=== PATIENT | female | born 1955 | race Caucasian/White ===

== ENCOUNTER → 2016-07-24 | Outpatient (CLI) | payer OTHER ==
--- NOTE | 2016-07-24 12:31 | XR ---
EXAMINATION TYPE: XR chest 2V DATE OF EXAM: 07/24/2016 11:29 AM COMPARISON: 10/26/2014 HISTORY: 61-year-old female with chest pain TECHNIQUE: Frontal and lateral views FINDINGS: The cardiomediastinal silhouette, aorta, and pulmonary vasculature are within normal limits. Hyperinf lation with flattening of the hemidiaphragms. No consolidation or pleural effusion. IMPRESSION: COPD without acute cardiopulmonary process.
--- NOTE | 2016-07-25 13:55 | MM ---
Reason for exam: screening (asymptomatic). Last mammogram was performed 6 years and 3 months ago. History: Patient is postmenopausal. Benign excisional biopsy of the left breast, 1985. Took estrogen for 1 year beginning at age 43. Took progesterone for 1 year beginning at age 43. Physical Findings: A clinical breast exam by your physician is recommended on an annual basis and results should be correlated with mammographic findings. MG Screening Mammo w CAD Bilateral CC and MLO view(s) were taken. Prior study comparison: May 05, 2010, bilateral digital screening mammo w/CAD. There are scattered fibroglandular densities. No significant changes when compared with prior studies. ASSESSMENT: Benign, BI-RAD 2 RECOMMENDATION: Routine screening mammogram of both breasts in 1 year.
== END | disposition home or self-care (01) ==
LOC: RADMAMWWP 10:51
PROVIDERS: ATTEND Family Medicine
DX: Z12.31 Encounter for screening mammogram for malignant neoplasm of breast (principal); J44.9 Chronic obstructive pulmonary disease, unspecified; R07.9 Chest pain, unspecified
CPT/HCPCS: 71020; G0202

== ENCOUNTER 2022-11-02 14:31 | Inpatient (IN) | payer MEDICARE ==
--- NOTE | 2022-11-02 15:05 | ED ---
Chest Pain HPI - General Chief Complaint: Chest Pain Stated Complaint: chest pain Time Seen by Provider: 11/02/22 15:04 Source: patient Mode of arrival: ambulatory Limitations: no limitations - History of Present Illness Initial Comments: Ainsa is a pleasant 67yo F who presents to the ER for evaluation of chest pain and outpatient labs with a positive troponin. Has no history of cardiac disease she reports she's been having episodic chest pain for about a month. She states that last night the chest pain became very severe and she was afraid she was having a heart attack. This morning she contacted her daughter who is a physician and told her over findings her daughter ordered outpatient labs and contacted her chiller that her cardiac enzymes were elevated and she needed to come the hospital immediately. Patient states she still having some pressure- like pain in her left chest but is not nearly as severe as last night. No shortness of breath or diaphoresis. Patient is about a half pack a day smoker but states she hasn't been smoking much lately because she doesn't feel well. She smokes marijuana regularly. She is on no oral medications that she has previously been treated for hypertension during periods of stress her life like when she was provided end-of-life care for her mother or her . Patient does report a family history of cardiac disease her mother had multiple MIs and strokes in her lifetime. - Related Data Home Medications Medication Instructions Recorded Confirmed Ascorbic Acid [Vitamin C] 500 mg PO DAILY 11/02/22 11/02/22 Aspirin EC [Ecotrin Low Dose] 81 mg PO DAILY 11/02/22 11/02/22 Cholecalciferol [Vitamin D3 (25 25 mcg PO DAILY 11/02/22 11/02/22 Mcg = 1000 Iu)] Magnesium Chewable (Unknown Dose) 1 tab PO DAILY 11/02/22 11/02/22 Omeprazole Magnesium [PriLOSEC OTC] 20 mg PO DAILY 11/02/22 11/02/22 Zinc Gluconate [Zinc] 50 mg PO DAILY 11/02/22 11/02/22 Allergies Allergy/AdvReac Type Severity Reaction Status Date / Time Penicillins Allergy Unknown Verified 11/02/22 16:38 Childhood aspirin AdvReac Upset Verified 11/02/22 16:38 stomach codeine AdvReac Nausea & Verified 11/02/22 16:38 Vomiting tramadol AdvReac Chest Pain Verified 11/02/22 16:38 & Nausea Review of Systems ROS Statement: Those systems with pertinent positive or pertinent negative responses have been documented in the HPI. ROS Other: All systems not noted in ROS Statement are negative. EKG Findings - EKG Comments: EKG Findings:: EKG was obtained due to complaint of chest pain, EKG was obtained at 1456 rate is 71 rhythm is sinus there is normal axis, NH interval prolonged at 206, QRS 83, QTC [address] elevations or depressions no evidence of acute ischemia or infarction. Past Medical History Past Medical History: Chest Pain / Angina, COPD, GERD/Reflux, Hypertension Additional Past Medical History / Comment(s): 02/09/15 Pt presented to [facility] ER with L lower abdominal pain for past 5 days. Over the last 3 days, pain has increased. Pain is at times sharp and at times dull. Pt having difficulty eating. She has to push to pass gas. She has had decreased bowel movements with last BM 3 days ago. Pt is being admitted with clinical impression of: diverticulitis, UTI. Other HX: 06/2013 diverticulitis with abscess unable to drain -tx medically. Additional HX: RA, chronic back pain, IBS, lactose intolerance, acute bronchitis, UTIs, chest pain 2008. History of Any Multi-Drug Resistant Organisms: None Reported Past Surgical History: Adenoidectomy, Appendectomy, Cholecystectomy, Hysterectomy, Orthopedic Surgery, Tonsillectomy Additional Past Surgical History / Comment(s): L elbow surgery, bilateral carpal tunnel releases, trigger finger surgery bilaterally. Past Anesthesia/Blood Transfusion Reactions: No Reported Reaction Additional Past Anesthesia/Blood Transfusion Reaction / Comment(s): Pt has never recieved blood. Past Psychological History: Depression Smoking Status: Current every day smoker Past Alcohol Use History: Occasional Past Drug Use History: None Reported - Past Family History Father Additional Family Medical History / Comment(s): Father was an alcoholic. He at age 78yrs. Mother Family Medical History: Coronary Artery Disease (CAD), CVA/TIA, Myocardial Infarction ([place]) Additional Family Medical History / Comment(s): Mother had several MIs and CVAs. She at age 79yrs. General Exam - General Exam Comments Initial Comments: Physical Exam GENERAL: Patient is well-developed and well-nourished. Patient is nontoxic and well-hydrated and is in no distress. HENT: Normocephalic, Atraumatic. EYES: PERRL, EOMI PULMONARY: Unlabored respirations. No audible rales rhonchi or wheezing was noted. CARDIOVASCULAR: There is a regular rate and rhythm without any murmurs gallops or rubs. ABDOMEN: Soft and nontender with normal bowel sounds. SKIN: Skin is clear with no lesions or rashes and otherwise unremarkable. : Deferred NEUROLOGIC: Patient is alert and oriented x3. Moving all extremities spontaneously MUSCULOSKELETAL: Normal extremities with adequate strength and full range of motion. No lower extremity swelling or edema. No calf tenderness. PSYCHIATRIC: Normal psychiatric evaluation. Limitations: no limitations Course Vital Signs 11/02/22 11/02/22 11/02/22 14:43 15:24 16:02 Temperature 98.9 F Pulse Rate 75 67 66 Respiratory 16 18 19 Rate Blood Pressure 129/86 159/81 151/88 O2 Sat by Pulse 95 96 95 Oximetry 11/02/22 11/02/22 11/02/22 17:32 18:53 21:16 Temperature 98 F Pulse Rate 66 65 78 Respiratory 18 17 22 Rate Blood Pressure 163/85 167/86 166/87 O2 Sat by Pulse 98 95 96 Oximetry Chest Pain MDM - Core Measures AMI Core Measures Followed: Yes - MDM She was seen and evaluated upon arrival to the emergency department Patient with chest pain for nearly a month worsening last night, palpation troponin positive EKG with no apparent ischemic findings Repeat labs are obtained, troponin elevated 0.7, BNP elevated Chest x-ray with no acute findings Aspirin, Heparin, nitro infusion ordered. Patient reported pain decreased to a 2 out of 10 in intensity after nitro Patient care was discussed with Dr. ERROL Tejada who agreed with plan for medications as ordered. Recommended metoprolol 4.5 twice a day, patient nothing by mouth at midnight for possible cath in the morning continued to trend troponins Per patient's request she'll be admitted with Dr. Murillo, he accepts the admission for NSTEMI with cardiology on consult Was pt. sent in by a medical professional or institution (, PA, FUNDER, urgent care, hospital, or prison...) When possible be specific @ -Yes Dr. Rocha Did you speak to anyone other than the patient for history (EMS, parent, family, police, friend...)? What history was obtained from this source @ -Family at bedside Did you review nursing and triage notes (agree or disagree)? Why? @ -I reviewed and agree with nursing and triage notes Were old charts reviewed (outside hosp., previous admission, EMS record, old EKG, old radiological studies, urgent care reports/EKG's, prison records)? Report findings @ -No old charts were reviewed Differential Diagnosis (chest pain, altered mental status, abdominal pain women, abdominal pain men, vaginal bleeding, weakness, fever, dyspnea, syncope, headache, dizziness, GI bleed, back pain, seizure, CVA, palpatations, mental health, musculoskeletal)? @ -Differential Chest Pain: Stable Angina, Unstable Angina, STEMI, NSTEMI Aortic Dissection, Pneumothorax, Musculoskeletal, Esophageal Spasm GERD, Cholecystitis, Pancreatitis, Zoster, this is not meant to be an all-inclusive list. EKG interpreted by me (3pts min.). @ -As above X-rays interpreted by me (1pt min.). @ -Pneumothorax no widened venous sign him no significant cardiomegaly CT interpreted by me (1pt min.). @ -None done U/S interpreted by me (1pt. min.). @ -None done What testing was considered but not performed or refused? (CT, X-rays, U/S, labs)? Why? @ -Cardiac cath to be done on admission What meds were considered but not given or refused? Why? @ -None Did you discuss the management of the patient with other professionals (professionals i.e. , PA, FUNDER, lab, RT, psych nurse, social work nurse, hand mixer, teacher, tax compliance officer, family service caseworker)? Give summary @ -Discussed with Dr. Tejada cardiology Was smoking cessation discussed for >3mins.? @ -Yes Was critical care preformed (if so, how long)? @ -Yes 5 minutes Were there social determinants of health that impacted care today? How? (Homelessness, low income, unemployed, alcoholism, drug addiction, transportation, low edu. Level, literacy, decrease access to med. care, long term, rehab)? @ -No Was there de-escalation of care discussed even if they declined (Discuss DNR or withdrawal of care, Hospice)? DNR status @ -No What co-morbidities impacted this encounter? (DM, HTN, Smoking, COPD, CAD, Cancer, CVA, ARF, Chemo, Hep., AIDS, mental health diagnosis, sleep apnea, morbid obesity)? @ -Hypertension, smoking Was patient admitted / discharged? Hospital course, mention meds given and route, prescriptions, significant lab abnormalities, going to OR and other pertinent info. @ -Admitted Undiagnosed new problem with uncertain prognosis? @ -Yes Drug Therapy requiring intensive monitoring for toxicity (Heparin, Nitro, Insulin, Cardizem)? @ -Yes, heparin, nitro Were any procedures done? @ -No Diagnosis/symptom? @ -NSTEMI Acute, or Chronic, or Acute on Chronic? @ -Acute Uncomplicated (without systemic symptoms) or Complicated (systemic symptoms)? @ -Complicated Side effects of treatment? @ -No Exacerbation, Progression, or Severe Exacerbation? @ -No Poses a threat to life or bodily function? How? (Chest pain, [place], [place], pneumonia, PE, COPD, DKA, ARF, appy, cholecystitis, CVA, Diverticulitis, Homicidal, Suicidal, threat to staff... and all critical care pts) @ -yes Critical Care Time Critical Care Time: Yes Total Critical Care Time: 35 Disposition Clinical Impression: NSTEMI (non-ST elevated myocardial infarction), HTN (hypertension), Tobacco abuse Disposition: ADMITTED IP TO THIS HOSP Condition: Serious Is patient prescribed a controlled substance at d/c from ED?: No
[2022-11-02] MEDS ORDERED: HEPARIN SODIUM 1,000 UN/ML (10ML VL) IV ONE (15:22)
[2022-11-02] MEDS ORDERED: NITROGLYCERIN SL TABS 0.4 MG TAB SUBLINGUAL PRN (15:22)
--- NOTE | 2022-11-02 15:26 | XR ---
EXAMINATION TYPE: XR chest 2V DATE OF EXAM: 11/02/2022 COMPARISON: 07/24/2016 HISTORY: 67-year-old female with chest pain TECHNIQUE: PA and lateral views FINDINGS: Heart normal size. Aorta and pulmonary vasculature are within normal limits. Mild interstitial promin ence. Hyperinflation. No consolidation or pleural effusion. IMPRESSION: COPD and chronic changes. No definite acute process.
[2022-11-02 15:34] LABS: Basophils # (A) 0.1 k/uL (0-0.2); Basophils % (A) 1 %; Eosinophils # (A) 0.2 k/uL (0-0.7); Eosinophils % (A) 2 %; HCT 39.4 % (34.0-46.0); HGB 13.7 gm/dL (11.4-16.0); Lymphocytes # (A) 4.6 k/uL (1.0-4.8); Lymphocytes % (A) 43 %; MCH 32.3 pg (25.0-35.0); MCHC 34.8 g/dL (31.0-37.0); MCV 93.1 fL (80.0-100.0); Mean Platelet Volume 7.6; Monocytes # (A) 0.7 k/uL (0-1.0); Monocytes % (A) 7 %; Neutrophils % (A) 46 %; Platelet Count 200 k/uL (150-450); RBC 4.24 m/uL (3.80-5.40); RDW 14.8 % (11.5-15.5); WBC 10.8 k/uL (3.8-10.6)
[2022-11-02] MEDS ORDERED: ASPIRIN 81 MG PO STA (15:34)
[2022-11-02 15:46] LABS: INR 0.9 (<1.2); Partial Thromboplastin Time 22.3 sec (22.0-30.0); Prothrombin Time 9.6 sec (9.0-12.0)
[2022-11-02 15:49] LABS: ALT 25 U/L (4-34); AST 35 U/L (14-36); African American GFR (CKD) >90 (>60 ml/min/1.73 sqM); Albumin 4.1 g/dL (3.5-5.0); Alkaline Phosphatase 101 U/L (38-126); Anion Gap 9 mmol/L; Blood Urea Nitrogen 17 mg/dL (7-17); Calcium 9.1 mg/dL (8.4-10.2); Carbon Dioxide 23 mmol/L (22-30); Chloride 106 mmol/L (98-107); Glucose 109 mg/dL (74-99); Magnesium 1.6 mg/dL (1.6-2.3); Non-African American GFR(CKD) 89 (>60 ml/min/1.73 sqM); Potassium 3.9 mmol/L (3.5-5.1); Sodium 138 mmol/L (137-145); Total Bilirubin 0.5 mg/dL (0.2-1.3)
[2022-11-02 15:57] LABS: NT-Pro-B-Type Natriuretic Pept 2140 pg/mL
[2022-11-02] MEDS ORDERED: HEPARIN SOD,PORK IN 0.45% NACL 25,000 UNIT in 0.45% NACL 1 250ML.BAG IV SCH (16:00)
[2022-11-02] MEDS ORDERED: NITROGLYCERIN-D5W PMX 50 MG in DEXTROSE/WATER 1 250ML.BAG IV ONE (16:12)
--- NOTE | 2022-11-02 17:21 | P.HPIM ---
History of Present Illness H&P Date: 11/02/22 Anisa Nova, is a 67-year-old female who presented to [facility] emergency room with a chief complaint of chest pain and elevated troponin level. Patient states that over the last 4 weeks she has been having episodes of chest discomfort lasting 1-2 hours at the time, she describes episodes of pressure in the chest, however last night she had an episode of more severe pain radiating down to her left arm, and lasting several hours, she contacted her daughter who is a physician, she ordered a troponin level and that was elevated, patient was told to come to emergency room. She was evaluated in the emergency room vital examination on presentation revealed a temperature of 98.9 pulse 75 respiration 16 blood pressure 129/86 pulse ox 95% on room air Laboratory data revealed a white blood count of 10.8 hemoglobin 13.7 platelet count 200 sodium 138 potassium 3.9 chloride 106 CO2 23 BUN 17 creatinine 0.69 troponin level 0.794 BNP 2140 Testing in the emergency room revealed chest x-ray done in the emergency room revealed hyperinflation suggestive of COPD, no acute process. EKG revealed sinus rhythm with poor R-wave progression in anterior leads and T-wave inversion in V1 to V3 and lead 3 and aVF, no ST segment elevation. Patient was admitted to medical floor for further evaluation and treatment, she was started on IV heparin in the emergency room, cardiology consultation was requested. Past medical history is significant for history of hypertension, history of hype rlipidemia, patient used to be on medications however she stated that she stopped taking her blood pressure medication several years ago, previous episode of chest pain patient stated that she was admitted 12 years ago she underwent cardiac catheterization that was within normal limits at that time, no angioplasty or stent placement, patient also had a stress test in 2016 that was within normal limits , there is history of osteoarthritis, history of diverticulosis with episodes of diverticulitis with admission in 2014, surgical history significant for tonsillectomy with adenoidectomy, cholecystectomy appendectomy and hysterectomy. Social history significant for tobacco use patient stated that she still smoke about half a pack per day, she denies any significant alcohol use there is no history of drug use. On review of systems patient is alert and oriented 3 in no apparent distress there is no fever or chills no headache or dizziness no chest pain at this time no shortness of breath at rest no cough no nausea or vomiting no abdominal pain no diarrhea no blood in the stools no burning with urination no frequency or urgency and no hematuria. There is no weakness or numbness in any of the extremities there is no change in vision speech or gait. Past Medical History Past Medical History: Chest Pain / Angina, COPD, GERD/Reflux, Hypertension Additional Past Medical History / Comment(s): 02/09/15 Pt presented to [facility] ER with L lower abdominal pain for past 5 days. Over the last 3 days, pain has increased. Pain is at times sharp and at times dull. Pt having difficulty eating. She has to push to pass gas. She has had decreased bowel movements with last BM 3 days ago. Pt is being admitted with clinical impression of: diverticulitis, UTI. Other HX: 06/2013 diverticulitis with abscess unable to drain -tx medically. Additional HX: RA, chronic back pain, IBS, lactose intolerance, acute bronchitis, UTIs, chest pain 2008. History of Any Multi-Drug Resistant Organisms: None Reported Past Surgical History: Adenoidectomy, Appendectomy, Cholecystectomy, H ysterectomy, Orthopedic Surgery, Tonsillectomy Additional Past Surgical History / Comment(s): L elbow surgery, bilateral carpal tunnel releases, trigger finger surgery bilaterally. Past Anesthesia/Blood Transfusion Reactions: No Reported Reaction Additional Past Anesthesia/Blood Transfusion Reaction / Comment(s): Pt has never recieved blood. Past Psychological History: Depression Smoking Status: Current every day smoker Past Alcohol Use History: Occasional Past Drug Use History: None Reported - Past Family History Father Additional Family Medical History / Comment(s): Father was an alcoholic. He at age 78yrs. Mother Family Medical History: Coronary Artery Disease (CAD), CVA/TIA, Myocardial Infarction ([place]) Additional Family Medical History / Comment(s): Mother had several MIs and CVAs. She at age 79yrs. Medications and Allergies Home Medications Medication Instructions Recorded Confirmed Type Ascorbic Acid [Vitamin C] 500 mg PO DAILY 11/02/22 11/02/22 History Aspirin EC [Ecotrin Low Dose] 81 mg PO DAILY 11/02/22 11/02/22 History Cholecalciferol [Vitamin D3 (25 25 mcg PO DAILY 11/02/22 11/02/22 History Mcg = 1000 Iu)] Magnesium Chewable (Unknown Dose) 1 tab PO DAILY 11/02/22 11/02/22 History Omeprazole Magnesium [PriLOSEC OTC] 20 mg PO DAILY 11/02/22 11/02/22 History Zinc Gluconate [Zinc] 50 mg PO DAILY 11/02/22 11/02/22 History Allergies Allergy/AdvReac Type Severity Reaction Status Date / Time Penicillins Allergy Unknown Verified 11/02/22 16:38 Childhood aspirin AdvReac Upset Verified 11/02/22 16:38 stomach codeine AdvReac Nausea & Verified 11/02/22 16:38 Vomiting tramadol AdvReac Chest Pain Verified 11/02/22 16:38 & Nausea Physical Exam Vitals: Vital Signs Temp Pulse Resp BP Pulse Ox 11/02/22 16:02 66 19 151/88 95 11/02/22 15:24 67 18 159/81 96 11/02/22 14:43 98.9 F 75 16 129/86 95 Intake and Output 11/02/22 11/02/22 11/02/22 06:59 14:59 22:59 Other: Weight 65.771 kg In general patient is alert and oriented x 3 in no distress HEENT head normocephalic and atraumatic Neck is supple no JVD no goiter no lymphadenopathy no carotid bruit Chest examination is clear to auscultation no crackles no wheezing Cardiac exam reveals regular heart sounds S1 and S2 no gallops no murmurs Abdomen is soft nontender no organomegaly with normal bowel sounds Extremity exam reveals no edema no cyanosis or clubbing Neurological examination reveals no gross focal deficits Results CBC & Chem 7: 11/02/22 14:56 11/02/22 14:56 Labs: Abnormal Lab Results - Last 24 Hours (Table) 11/02/22 11/02/22 11/02/22 Range/Units 14:56 14:56 14:56 WBC 10.8 H (3.8-10.6) k/uL Glucose 109 H (74-99) mg/dL Troponin I 0.794 H* (0.000-0.034) ng/mL Assessment and Plan Plan: Non-ST elevation acute myocardial infarction Underlying history of hypertension Underlying history of hyperlipidemia Underlying history of tobacco use Evidence of COPD Previous history of diverticulosis with history of diverticulitis At this time patient was started on IV heparin She was also started on lisinopril, aspirin, Lipitor, nitroglycerin and metoprolol in the emergency room Cardiology consultation was requested Will follow closely
[2022-11-02] MEDS: METOPROLOL TARTRATE 12.5 MG TAB PO SCH (21:16)
[2022-11-03] MEDS ORDERED: ACETAMINOPHEN TAB 500 MG TAB PO STA (00:41)
[2022-11-03] MEDS: ASPIRIN 81 MG PO SCH (07:44)
[2022-11-03] MEDS: METOPROLOL TARTRATE 12.5 MG TAB PO SCH (07:44)
[2022-11-03] MEDS ORDERED: ATORVASTATIN 20 MG TAB PO SCH (09:00)
[2022-11-03] MEDS ORDERED: HEPARIN SODIUM 1,000 UN/ML (10ML VL) ONE (09:48)
[2022-11-03] MEDS ORDERED: MIDAZOLAM 2 MG/2 ML VIAL IVP ONE ×2 (10:14)
[2022-11-03] MEDS ORDERED: LIDOCAINE 1% INJ 10MG/ML (20 ML MDV) SQ ONE (10:15)
[2022-11-03] MEDS ORDERED: SODIUM CHLORIDE 0.9% 1,000 ML IV ONE (10:16)
[2022-11-03] MEDS ORDERED: fentaNYL (PF) 50 MCG/ML 2 ML AMP ONE (10:19)
[2022-11-03] MEDS ORDERED: fentaNYL (PF) 50 MCG/1 ML VIAL IVP ONE (10:21)
[2022-11-03] MEDS: HEPARIN SODIUM 1,000 UN/ML (10ML VL) IVP ONE ×2 (10:21→10:29)
[2022-11-03] MEDS ORDERED: TICAGRELOR 90 MG TAB ONE (10:41)
[2022-11-03] MEDS ORDERED: TICAGRELOR 90 MG TAB PO ONE (10:43)
[2022-11-03] MEDS ORDERED: niCARdipine 25 MG/10 ML VIAL ONE (10:44)
[2022-11-03] MEDS ORDERED: IOPAMIDOL-370 100ML BTL INJ ONE ×2 (10:46→11:20)
[2022-11-03] MEDS ORDERED: niCARdipine Syringe (1,000 mcg/10 mL) INTRACORON ONE (10:47)
[2022-11-03] MEDS: NITROGLYCERIN 1000MCG/10ML SYRINGE INTRACORON ONE ×4 (10:47→11:12)
--- NOTE | 2022-11-03 11:26 | P.CRDCN ---
History of Present Illness History of present illness: HISTORY OF PRESENT ILLNESS: This is a 67 with a past medical history significant for depression and nicotine dependence. 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 We have been asked to see the patient in consultation for NSTEMI. Patient examined at the bedside. Patient has been having chest pain intermittently for the past 4 weeks. She states the pain is on the left side of her chest and underneath her armpit. She states at first she thought this was related to her bra and thought maybe it was too tight and cutting off the circulation as she has been getting some discomfort in her left arm too. She told her daughter about her symptoms who is a physician. She ordered bloodwork on her and she was found to have elevated troponins and came to the hospital for further evaluation * EKG reveals sinus mechanism with TWI in lead III and V1-V3 * Chest xray COPD and chronic changes. No definite acute process. * Laboratory data: WBC 10.8. Hemoglobin 13.7. Platelet count 200. Sodium 138. Potassium 3.9. BUN 17. Creatinine 0.69. Magnesium 1.6. Troponin 0.794. 1.180. ProBNP 2140. * Current home cardiac medications include aspirin 81mg daily REVIEW OF SYSTEMS: At the time of my exam: CONSTITUTIONAL: Denies fever or chills. HEENT: Denies blurred vision, vision changes, or eye pain. Denies hemoptysis CARDIOVASCULAR: Denies chest pain. Denies orthopnea. Denies PND. Denies palpitations RESPIRATORY: Denies shortness of breath. GASTROINTESTINAL: Denies abdominal pain. Denies nausea or vomiting. HEMATOLOGIC: Denies bleeding disorders. GENITOURINARY: Denies any blood in urine. SKIN: Denies pruitis. Denies rash. PHYSICAL EXAM: VITAL SIGNS: Reviewed. GENERAL: Well-developed in no acute distress. HEENT: Head is normocephalic. Pupils are equal, round. Sclerae anicteric. Mucous membranes of the mouth are moist. Neck supple. No JVD or thyromegaly LUNGS: Respirations even and unlabored. Lungs essentially clear to auscultation bilaterally. HEART: Regular rate and rhythm. S1 and S2 heard. ABDOMEN: Soft. Nondistended. Nontender. EXTREMITIES: Normal range of motion. No clubbing or cyanosis. Peripheral pulses intact. No lower extremity edema NEUROLOGIC: Awake and alert. Oriented x 3. ASSESSMENT: Non-STEMI Depression Nicotine dependence PLAN: Obtain 2D echo to assess cardiac structure and function Continue aspirin, lipitor, and metoprolol Continue IV heparin Patient to undergo cardiac cath this morning with Dr. Tejada Smoking cessation recommended Further recommendations pending patient course Nurse practitioner note has been reviewed by physician. Signing provider agrees with the documented findings, assessment, and plan of care. Past Medical History Past Medical History: Chest Pain / Angina, COPD, GERD/Reflux, Hypertension Additional Past Medical History / Comment(s): 02/09/15 Pt presented to [facility] ER with L lower abdominal pain for past 5 days. Over the last 3 days, pain has increased. Pain is at times sharp and at times dull. Pt having difficulty eating. She has to push to pass gas. She has had decreased bowel movements with last BM 3 days ago. Pt is being admitted with clinical impression of: diverticulitis, UTI. Other HX: 06/2013 diverticulitis with abscess unable to drain -tx medically. Additional HX: RA, chronic back pain, IBS, lactose intolerance, acute bronchitis, UTIs, chest pain 2008. History of Any Multi-Drug Resistant Organisms: None Reported Past Surgical History: Adenoidectomy, Appendectomy, Cholecystectomy, Hysterectomy, Orthopedic Surgery, Tonsillectomy Additional Past Surgical History / Comment(s): L elbow surgery, bilateral carpal tunnel releases, trigger finger surgery bilaterally. Past Anesthesia/Blood Transfusion Reactions: No Reported Reaction Additional Past Anesthesia/Blood Transfusion Reaction / Comment(s): Pt has never recieved blood. Past Psychological History: Depression Additional Psychological History / Comment(s): Pt states she has recently been placed on antidepressant but does not think it is working. She resides with her spouse who is disabled and she cares for him. She uses no assistive devices. She drives. They have a cousin who lives upstairs. Smoking Status: Current every day smoker Past Alcohol Use History: Occasional Additional Past Alcohol Use History / Comment(s): Pt states she started smoking at age 13. She smoked 1/2 ppd and has not had a cigarette for 4 days. She intends to not smoke again. Past Drug Use History: None Reported - Past Family History Father Additional Family Medical History / Comment(s): Father was an alcoholic. He at age 78yrs. Mother Family Medical History: Coronary Artery Disease (CAD), CVA/TIA, Myocardial Infarction (DE) Additional Family Medical History / Comment(s): Mother had several MIs and CVAs. She at age 79yrs. Medications and Allergies Home Medications Medication Instructions Recorded Confirmed Type Ascorbic Acid [Vitamin C] 500 mg PO DAILY 11/02/22 11/02/22 History Aspirin EC [Ecotrin Low Dose] 81 mg PO DAILY 11/02/22 11/02/22 History Cholecalciferol [Vitamin D3 (25 25 mcg PO DAILY 11/02/22 11/02/22 History Mcg = 1000 Iu)] Magnesium Chewable (Unknown Dose) 1 tab PO DAILY 11/02/22 11/02/22 History Omeprazole Magnesium [PriLOSEC OTC] 20 mg PO DAILY 11/02/22 11/02/22 History Zinc Gluconate [Zinc] 50 mg PO DAILY 11/02/22 11/02/22 History Allergies Allergy/AdvReac Type Severity Reaction Status Date / Time Penicillins Allergy Unknown Verified 11/02/22 16:38 Childhood aspirin AdvReac Upset Verified 11/02/22 16:38 stomach codeine AdvReac Nausea & Verified 11/02/22 16:38 Vomiting tramadol AdvReac Chest Pain Verified 11/02/22 16:38 & Nausea Physical Exam Vitals: Vital Signs Temp Pulse Pulse Resp BP BP Pulse Ox 11/03/22 07:41 97.5 F L 62 17 107/64 97 11/03/22 03:15 98.1 F 64 18 115/73 97 11/03/22 01:44 97.9 F 61 18 97/62 96 11/03/22 00:52 98.0 F 63 18 124/75 96 11/02/22 21:16 78 22 166/87 96 11/02/22 18:53 98 F 65 17 167/86 95 11/02/22 17:32 66 18 163/85 98 11/02/22 16:02 66 19 151/88 95 11/02/22 15:24 67 18 159/81 96 11/02/22 14:43 98.9 F 75 16 129/86 95 Intake and Output 11/02/22 11/03/22 11/03/22 22:59 06:59 14:59 Output Total 300 150 Balance -300 -150 Output: Urine 300 150 Other: # Voids 1 Weight 65.9 kg Results 11/02/22 14:56 11/02/22 14:56 Cardiac Enzymes 11/02/22 11/02/22 11/02/22 Range/Units 14:56 14:56 20:44 AST 35 (14-36) U/L Troponin I 0.794 H* 1.180 H* (0.000-0.034) ng/mL Coagulation 11/02/22 11/02/22 11/03/22 Range/Units 14:56 20:44 01:00 PT 9.6 (9.0-12.0) sec APTT 22.3 53.8 H 44.5 H (22.0-30.0) sec CBC 11/02/22 Range/Units 14:56 WBC 10.8 H (3.8-10.6) k/uL RBC 4.24 (3.80-5.40) m/uL Hgb 13.7 (11.4-16.0) gm/dL Hct 39.4 (34.0-46.0) % Plt Count 200 (150-450) k/uL Comprehensive Metabolic Panel 11/02/22 Range/Units 14:56 Sodium 138 (137-145) mmol/L Potassium 3.9 (3.5-5.1) mmol/L Chloride 106 (98-107) mmol/L Carbon Dioxide 23 (22-30) mmol/L BUN 17 (7-17) mg/dL Creatinine 0.69 (0.52-1.04) mg/dL Glucose 109 H (74-99) mg/dL Calcium 9.1 (8.4-10.2) mg/dL AST 35 (14-36) U/L ALT 25 (4-34) U/L Alkaline Phosphatase 101 (38-126) U/L Total Protein 7.0 (6.3-8.2) g/dL Albumin 4.1 (3.5-5.0) g/dL Current Medications Generic Name Dose Route Start Last Admin Trade Name Freq PRN Reason Stop Dose Admin Aspirin 81 mg 11/03/22 09:00 11/03/22 07:44 Aspirin 81 Mg PO 81 mg DAILY AGUSTIN Administration Atorvastatin Calcium 80 mg 11/03/22 21:00 Atorvastatin 80 Mg Tab PO HS AGUSTIN Heparin Sodium/Sodium Chloride 250 mls @ 7.893 mls/hr 11/02/22 16:00 11/02/22 15:59 25,000 unit/ Sodium Chloride IV 12 units/kg/hr .Q24H AGUSTIN 7.893 mls/hr Administration Protocol 12 UNITS/KG/HR Lisinopril 10 mg 11/03/22 09:00 Lisinopril 10 Mg Tab PO DAILY AGUSTIN Metoprolol Tartrate 12.5 mg 11/02/22 21:00 11/03/22 07:44 Metoprolol Tartrate 12.5 Mg Tab PO 12.5 mg BID AGUSTIN Administration Nitroglycerin 0.4 mg 11/02/22 15:22 11/02/22 15:48 Nitroglycerin Sl Tabs 0.4 Mg Tab SUBLINGUAL 0.4 mg Q5M PRN Administration Chest Pain Intake and Output 11/02/22 11/03/22 11/03/22 22:59 06:59 14:59 Output Total 300 150 Balance -300 -150 Output: Urine 300 150 Other: # Voids 1 Weight 65.9 kg 11/02/22 14:56 11/02/22 14:56
[2022-11-03 11:53] LABS: Mean Platelet Volume 7.4; Platelet Count 221 k/uL (150-450)
[2022-11-03] MEDS: lisinopriL 10 MG TAB PO SCH (11:57)
[2022-11-03] MEDS: SODIUM CHLORIDE 0.9% 1,000 ML IV SCH (11:57)
--- NOTE | 2022-11-03 12:06 | CA ---
Transthoracic Echo Report Name: Anisa Nova Age: 67 Gender: F : 1955 Exam Date: 11/03/2022 09:08 Exam Location: [facility] Ht (in): 65 Wt (lb): 145 Ordering Physician: Donya Jack Attending/Referring Phys: [id number], Marcie Edger Runner Akanksha Schwartz RDCS Procedure CPT: Indications: LV function Cardiac Hx: smoker Technical Quality: Fair Contrast 1: Total Dose (mL): Contrast 2: Total Dose (mL): MEASUREMENTS (Male / Female) Normal Values 2D ECHO LV Diastolic Diameter PLAX 4.4 cm 4.2 - 5.9 / 3.9 - 5.3 cm LV Systolic Diameter PLAX 2.8 cm IVS Diastolic Thickness 0.9 cm 0.6 - 1.0 / 0.6 - 0.9 cm LVPW Diastolic Thickness 1.1 cm 0.6 - 1.0 / 0.6 - 0.9 cm LV Relative Wall Thickness 0.5 RV Internal Dim ED PLAX 2.9 cm LA Systolic Diameter LX 2.8 cm 3.0 - 4.0 / 2.7 - 3.8 cm LV Diastolic Volume MOD 4C 61.5 cm??? LV Systolic Volume MOD 4C 26.7 cm??? LV Ejection Fraction MOD 4C 56.6 % LV Cardiac Index MOD 4C 1197.1 cm???/min???m??? LV Diastolic Length 4C 6.8 cm LV Systolic Length 4C 5.2 cm LV Diastolic Volume MOD 2C 85.8 cm??? LV Systolic Volume MOD 2C 32.1 cm??? LV Ejection Fraction MOD 2C 62.6 % LV Cardiac Index MOD 2C 1846.7 cm???/min???m??? LV Diastolic Length 2C 7.2 cm LV Systolic Length 2C 5.7 cm LA Volume 33.9 cm??? 18 - 58 / 22 - 52 cm??? M-MODE Aortic Root Diameter MM 3.2 cm MV E Point Septal Separation 0.3 cm AV Cusp Separation MM 2.2 cm DOPPLER AV Peak Velocity 121.6 cm/s AV Peak Gradient 5.9 mmHg MV Area PHT 4.7 cm??? Mitral E Point Velocity 93.3 cm/s Mitral A Point Velocity 98.2 cm/s Mitral E to A Ratio 1.0 MV Deceleration Time 161.7 ms MV E' Velocity 5.9 cm/s Mitral E to MV E' Ratio 15.8 FINDINGS Left Ventricle Left ventricular ejection fraction is estimated at 55-60 %. Left ventricular cavity size normal. Left ventricular wall thickness at upper limits of normal. Mild inferobasal hypokinesis Right Ventricle Normal right ventricular size and function. Unable to estimate the right ventricular systolic pressure. Right Atrium Normal right atrial size. Left Atrium Normal left atrial size. Mitral Valve Structurally normal mitral valve. Mild to moderate mitral regurgitation. Aortic Valve Trileaflet aortic valve. No aortic valve stenosis or regurgitation. Tricuspid Valve Structurally normal tricuspid valve. No tricuspid stenosis, regurgitation or prolapse. Pulmonic Valve Structurally normal pulmonic valve.trace to mild pulmonic regurgitation. Pericardium Normal pericardium. No pericardial effusion. Aorta Normal size aortic root and proximal ascending aorta. CONCLUSIONS 1. Normal left ventricular size and systolic function with mild small inferobasal hypokinesis 2. Mild to moderate mitral regurgitation Previewed by: Dr. Lee Ann Cates MD (Electronically Signed) Final Date: 03 November 2022 12:05
[2022-11-03] MEDS ORDERED: ACETAMINOPHEN TAB 325 MG TAB PO PRN (13:50)
--- NOTE | 2022-11-03 14:13 | CC ---
CARDIAC CATHETERIZATION REPORT PROCEDURES PERFORMED: 1. Left heart catheterization and coronary angiography. 2. PTCA and stenting of proximal and mid right coronary artery with drug-eluting stents. 3. Intravascular ultrasound of right coronary artery. PERFORMED BY: Dr. Mame Tejada. ANESTHESIA: Moderate conscious sedation time was 66 minutes. Patient was administered Versed. Oxygen saturation, hemodynamics, and EKG were monitored closely. This patient received a total of 4500 units of intravenous heparin. ACT was about 367 and at the end of the procedure it was 232. Patient will be on Brilinta and aspirin combination without interruption for 1 year. CLINICAL INFORMATION: Mrs. Anisa Nova is a 67-year-old lady with a history of smoking and also history of some COPD/bronchial asthma with some albuterol inhaler. She also takes vitamins and some supplements. She has gastroesophageal reflux disease. For about 3 weeks, she has been having episodes of chest tightness and pressure, but did not seek medical attention. Yesterday, she came in at the insistence of her daughter to the emergency room, had chest pain, obtained relief with nitroglycerin, placed on a heparin drip and there was evidence of troponin elevation suggestive of [id number] [place]. She was seen by me this morning and advised cardiac catheterization. Risks, benefits, options, rationale were carefully explained to the patient and I also communicated with her daughter, Rand Rocha. Echocardiogram revealed fairly well preserved systolic function with minimal inferobasal hypokinesia. DESCRIPTION OF PROCEDURE: Under local anesthesia and strict aseptic precautions, a 6-St Helenian introducer was placed in the right radial artery. Using JR4 and JL3 0.5 catheters I performed coronary angiography and checked LV pressures. LV-gram was not performed. I then performed intervention of the RCA. Following the intervention, the sheath was taken out and TR band applied as per protocol. Saturation in the fingers of the right hand was 94%. Patient tolerated the procedure well without complications. CARDIAC CATHETERIZATION FINDINGS: The left ventricular end-diastolic pressure was about nearly 18 to 20 mmHg without any gradient across the aortic valve. CORONARY ANGIOGRAPHY FINDINGS: Right coronary artery, very large dominant vessel, has some thrombus in the proximal portion. There is 80% to 90% stenosis, after which the caliber improves. There are mild haziness before the lesion distally it bifurcates into 2 branches, most of which are in the PLV distribution. There is also a PDA that comes distally. PLV is smaller, PDA is larger. No significant disease in the distal portion. At the junction of the proximal and middle 1/3, there was 80% stenosis with haziness suggestive of thrombus. Left main coronary artery, short patent disease-free vessel that bifurcates into LAD and circumflex. Left anterior descending coronary artery: Good-caliber vessel, extends along the anterior wall, gives off septal and diagonal branches, very large caliber large distribution vessel that was tortuous distally curves over the apex to supply the inferoapical portion. No significant disease in the entire LAD system. Left posterior circumflex coronary artery: Technically, this is a nondominant vessel, gives off a high first obtuse marginal that runs laterally, tortuous, minor irregularities, no significant disease. The circumflex then continues in the AV groove, also tortuous, has mild diffuse disease, but no significant stenosis. FINAL IMPRESSION: This patient has a right-dominant system, elevated filling pressures. No gradient 80% to 90% proximal RCA stenosis with haziness and thrombus. Left main circumflex and LAD do not have significant disease. RCA is dominant. RECOMMENDATIONS: I recommend intervention of the RCA that was performed expeditiously. PCI PROCEDURE DETAILS: I used a standard right Lluvia guide catheter and a run-through wire. Wire was kept distally. I pre-dilated with a 3.5 caliber NC Trek balloon of 12 mm length. There was significant amount of thrombus and the flow became very sluggish. The patient did not have EKG changes or chest pain. She was stable hemodynamically. I then deployed a 4.5 caliber Xience stent of about 15 mm length with a good angiographic result, but distal to the stent there was an area of disease with thrombus and also the flow was sluggish. I gave some nicardipine intracoronary and also nitroglycerin. There was improvement. I noted that just distal to the stented area there seemed to persist an area of narrowing even after giving nitroglycerin, the rest of the vessel opened up. I therefore decided to deploy another stent distal to the previous stent. An 18 mm long 3.5 caliber Xience stent was deployed. I performed intravascular ultrasound and noted that there was good apposition of the previous stent. I actually used a 5.0 caliber 12 mm NC Trek balloon and post dilated the previous stent which was a 4.5 caliber stent. After deploying a 3.5 caliber stent distal to this, I performed intravascular ultrasound and noted that there was good apposition of the proximal stent with a full expansion, but distally there seemed to be somewhat suboptimal expansion. I therefore used a 4.0 caliber 15 mm NC Trek balloon and dilated the entire length of the distal stent. Excellent angiographic result was achieved. The patient tolerated the procedure well without complication. There was remarkably good MICKEY-3 flow noted in the end. The patient received 180 mg of Brilinta and she will be on aspirin and Brilinta combination for 1 year without interruption. Sheath was taken out and TR band applied and she was sent to the room in stable condition. Findings were discussed with the patient and her 2 daughters. MMODL / IJN: [id number] /
--- NOTE | 2022-11-03 14:22 | P.PN ---
Subjective Progress Note Date: 11/03/22 Anisa Nova, is a 67-year-old female who presented to [facility] emergency room with a chief complaint of chest pain and elevated troponin level. Patient states that over the last 4 weeks she has been having episodes of chest discomfort lasting 1-2 hours at the time, she describes episodes of pressure in the chest, however last night she had an episode of more severe pain radiating down to her left arm, and lasting several hours, she contacted her daughter who is a physician, she ordered a troponin level and that was elevated, patient was told to come to emergency room. She was evaluated in the emergency room vital examination on presentation revealed a temperature of 98.9 pulse 75 respiration 16 blood pressure 129/86 pulse ox 95% on room air Laboratory data revealed a white blood count of 10.8 hemoglobin 13.7 platelet count 200 sodium 138 potassium 3.9 chloride 106 CO2 23 BUN 17 creatinine 0.69 troponin level 0.794 BNP 2140 Testing in the emergency room revealed chest x-ray done in the emergency room revealed hyperinflation suggestive of COPD, no acute process. EKG revealed sinus rhythm with poor R-wave progression in anterior leads and T-wave inversion in V1 to V3 and lead 3 and aVF, no ST segment elevation. Patient was admitted to medical floor for further evaluation and treatment, she was started on IV heparin in the emergency room, cardiology consultation was requested. Past medical history is significant for history of hypertension, history of hyperlipidemia, patient used to be on medications however she stated that she stopped taking her blood pressure medication several years ago, previous episode of chest pain patient stated that she was admitted 12 years ago she underwent cardiac catheterization that was within normal limits at that time, no a ngioplasty or stent placement, patient also had a stress test in 2016 that was within normal limits , there is history of osteoarthritis, history of diverticulosis with episodes of diverticulitis with admission in 2014, surgical history significant for tonsillectomy with adenoidectomy, cholecystectomy appendectomy and hysterectomy. Social history significant for tobacco use patient stated that she still smoke about half a pack per day, she denies any significant alcohol use there is no history of drug use. On review of systems patient is alert and oriented 3 in no apparent distress there is no fever or chills no headache or dizziness no chest pain at this time no shortness of breath at rest no cough no nausea or vomiting no abdominal pain no diarrhea no blood in the stools no burning with urination no frequency or urgency and no hematuria. There is no weakness or numbness in any of the extremities there is no change in vision speech or gait. On 11/03/2022 patient was seen and examined on the telemetry floor, she is alert and oriented 3 in no apparent distress, she is complaining of headache at this time otherwise she denies any complaints, there is no fever or chills no headach e or dizziness no chest pain no shortness of breath no cough no nausea or vomiting no abdominal pain no diarrhea and no urinary symptoms, patient underwent cardiac catheterization today she underwent angioplasty with stent placement of the proximal and mid right coronary artery. Objective - Vital Signs Vital signs: Vital Signs Temp 97.5 F L 11/03/22 07:41 Pulse 62 11/03/22 11:56 Resp 18 11/03/22 11:56 BP 173/79 11/03/22 11:56 Pulse Ox 95 11/03/22 11:56 FiO2 Intake & Output 11/02/22 11/03/22 11/03/22 18:59 06:59 18:59 Intake Total 411.584 Output Total 300 150 Balance -300 261.584 Weight 65.771 kg 65.9 kg Intake: IV 250 Intake, IV Titration 161.584 Amount Heparin Sod,Pork in 0.45% 138.259 NaCl 25,000 unit In 0.45 % NaCl 1 250ml.bag @ 12 UNITS/KG/HR 7.893 mls/hr IV .Q24H AGUSTIN Rx#: [id number] Nitroglycerin-D5w Pmx 50 23.325 mg In Dextrose/Water 1 250ml.bag @ 5 MCG/MIN 1.5 mls/hr IV .Q24H ONE Rx#: [id number] Output: Urine 300 150 Other: # Voids 1 - Exam In general patient is alert and oriented x 3 in no distress HEENT head normocephalic and atraumatic Neck is supple no JVD no goiter no lymphadenopathy no carotid bruit Chest examination is clear to auscultation no crackles no wheezing Cardiac exam reveals regular heart sounds S1 and S2 no gallops no murmurs Abdomen is soft nontender no organomegaly with normal bowel sounds Extremity exam reveals no edema no cyanosis or clubbing Neurological examination reveals no gross focal deficits - Labs CBC & Chem 7: 11/03/22 11:37 11/02/22 14:56 Labs: Abnormal Lab Results - Last 24 Hours (Table) 11/02/22 11/02/22 11/02/22 Range/Units 14:56 14:56 14:56 WBC 10.8 H (3.8-10.6) k/uL APTT (22.0-30.0) sec Glucose 109 H (74-99) mg/dL Troponin I 0.794 H* (0.000-0.034) ng/mL 11/02/22 11/02/22 11/03/22 Range/Units 20:44 20:44 01:00 WBC (3.8-10.6) k/uL APTT 53.8 H 44.5 H (22.0-30.0) sec Glucose (74-99) mg/dL Troponin I 1.180 H* (0.000-0.034) ng/mL 11/03/22 Range/Units 11:37 WBC (3.8-10.6) k/uL APTT (22.0-30.0) sec Glucose (74-99) mg/dL Troponin I 0.619 H* (0.000-0.034) ng/mL Assessment and Plan Plan: Non-ST elevation acute myocardial infarction Underlying history of hypertension Underlying history of hyperlipidemia Underlying history of tobacco use Evidence of COPD Previous history of diverticulosis with history of diverticulitis At this time patient was started on IV heparin Today patient underwent cardiac catheterization with angioplasty and 2 stent placement in the proximal and mid right coronary artery She was also started on lisinopril, aspirin, Lipitor, nitroglycerin and metoprolol in the emergency room Cardiology consultation was requested Will follow closely
[2022-11-03 15:50] LABS: Chol/HDL Ratio 2.98 Ratio; VLDL Calculation 15.26 mg/dL (5.00-40.00)
[2022-11-03] MEDS: METOPROLOL TARTRATE 25 MG TAB PO SCH (20:09)
[2022-11-03] MEDS: ATORVASTATIN 80 MG TAB PO SCH (20:09)
[2022-11-04] MEDS: SODIUM CHLORIDE 0.9% 1,000 ML IV SCH (06:03)
[2022-11-04] MEDS: TICAGRELOR 90 MG TAB PO SCH ×2 (07:20→21:35)
[2022-11-04] MEDS: METOPROLOL TARTRATE 25 MG TAB PO SCH ×2 (07:20→21:35)
[2022-11-04] MEDS: ASPIRIN 81 MG PO SCH (07:20)
[2022-11-04] MEDS: lisinopriL 10 MG TAB PO SCH (07:21)
[2022-11-04] MEDS: LOSARTAN 50 MG TAB PO SCH (07:21)
[2022-11-04 07:25] VITALS: RESP 16
[2022-11-04 08:30] LABS: Basophils # (A) 0.1 k/uL (0-0.2); Basophils % (A) 1 %; Eosinophils # (A) 0.2 k/uL (0-0.7); Eosinophils % (A) 2 %; HCT 38.3 % (34.0-46.0); HGB 12.9 gm/dL (11.4-16.0); Lymphocytes # (A) 3.7 k/uL (1.0-4.8); Lymphocytes % (A) 37 %; MCH 31.3 pg (25.0-35.0); MCHC 33.7 g/dL (31.0-37.0); Mean Platelet Volume 7.7; Monocytes # (A) 0.7 k/uL (0-1.0); Monocytes % (A) 7 %; Neutrophils # (A) 5.1 k/uL (1.3-7.7); Neutrophils % (A) 51 %; Platelet Count 232 k/uL (150-450); RBC 4.12 m/uL (3.80-5.40); RDW 14.7 % (11.5-15.5)
[2022-11-04 08:58] LABS: ALT 29 U/L (4-34); AST 33 U/L (14-36); African American GFR (CKD) >90 (>60 ml/min/1.73 sqM); Albumin 3.9 g/dL (3.5-5.0); Alkaline Phosphatase 67 U/L (38-126); Anion Gap 9 mmol/L; Blood Urea Nitrogen 11 mg/dL (7-17); Calcium 8.8 mg/dL (8.4-10.2); Carbon Dioxide 24 mmol/L (22-30); Chloride 104 mmol/L (98-107); Glucose 152 mg/dL (74-99); Magnesium 1.7 mg/dL (1.6-2.3); Non-African American GFR(CKD) 90 (>60 ml/min/1.73 sqM); Potassium 4.1 mmol/L (3.5-5.1); Sodium 137 mmol/L (137-145); Total Bilirubin 0.8 mg/dL (0.2-1.3); Total Protein 6.4 g/dL (6.3-8.2)
--- NOTE | 2022-11-04 11:34 | P.PN ---
Subjective Progress Note Date: 11/04/22 Anisa Nova, is a 67-year-old female who presented to [facility] emergency room with a chief complaint of chest pain and elevated troponin level. Patient states that over the last 4 weeks she has been having episodes of chest discomfort lasting 1-2 hours at the time, she describes episodes of pressure in the chest, however last night she had an episode of more severe pain radiating down to her left arm, and lasting several hours, she contacted her daughter who is a physician, she ordered a troponin level and that was elevated, patient was told to come to emergency room. She was evaluated in the emergency room vital examination on presentation revealed a temperature of 98.9 pulse 75 respiration 16 blood pressure 129/86 pulse ox 95% on room air Laboratory data revealed a white blood count of 10.8 hemoglobin 13.7 platelet count 200 sodium 138 potassium 3.9 chloride 106 CO2 23 BUN 17 creatinine 0.69 troponin level 0.794 BNP 2140 Testing in the emergency room revealed chest x-ray done in the emergency room revealed hyperinflation suggestive of COPD, no acute process. EKG revealed sinus rhythm with poor R-wave progression in anterior leads and T-wave inversion in V1 to V3 and lead 3 and aVF, no ST segment elevation. Patient was admitted to medical floor for further evaluation and treatment, she was started on IV heparin in the emergency room, cardiology consultation was requested. Past medical history is significant for history of hypertension, history of hyperlipidemia, patient used to be on medications however she stated that she stopped taking her blood pressure medication several years ago, previous episode of chest pain patient stated that she was admitted 12 years ago she underwent cardiac catheterization that was within normal limits at that time, no a ngioplasty or stent placement, patient also had a stress test in 2016 that was within normal limits , there is history of osteoarthritis, history of diverticulosis with episodes of diverticulitis with admission in 2014, surgical history significant for tonsillectomy with adenoidectomy, cholecystectomy appendectomy and hysterectomy. Social history significant for tobacco use patient stated that she still smoke about half a pack per day, she denies any significant alcohol use there is no history of drug use. On review of systems patient is alert and oriented 3 in no apparent distress there is no fever or chills no headache or dizziness no chest pain at this time no shortness of breath at rest no cough no nausea or vomiting no abdominal pain no diarrhea no blood in the stools no burning with urination no frequency or urgency and no hematuria. There is no weakness or numbness in any of the extremities there is no change in vision speech or gait. On 11/03/2022 patient was seen and examined on the telemetry floor, she is alert and oriented 3 in no apparent distress, she is complaining of headache at this time otherwise she denies any complaints, there is no fever or chills no headach e or dizziness no chest pain no shortness of breath no cough no nausea or vomiting no abdominal pain no diarrhea and no urinary symptoms, patient underwent cardiac catheterization today she underwent angioplasty with stent placement of the proximal and mid right coronary artery. On 11/04/2022 patient was seen and examined on the telemetry floor she is alert and oriented 3 in no distress there is no new episodes of chest pain patient is feeling well and denying any symptoms there is no fever or chills no headache or dizziness no chest pain no shortness of breath no cough no nausea or vomiting no abdominal pain no diarrhea and no urinary symptoms Objective - Vital Signs Vital signs: Vital Signs Temp 98.0 F 11/04/22 07:24 Pulse 66 11/04/22 07:24 Resp 16 11/04/22 07:24 BP 121/77 11/04/22 07:24 Pulse Ox 94 L 11/04/22 08:35 FiO2 Intake & Output 11/03/22 11/04/22 11/04/22 18:59 06:59 18:59 Intake Total 411.584 480 Output Total 1100 950 Balance -688.416 -950 480 Weight 65.3 kg Intake: IV 250 Intake, IV Titration 161.584 Amount Heparin Sod,Pork in 0.45% 138.259 NaCl 25,000 unit In 0.45 % NaCl 1 250ml.bag @ 12 UNITS/KG/HR 7.893 mls/hr IV .Q24H AGUSTIN Rx#: [id number] Nitroglycerin-D5w Pmx 50 23.325 mg In Dextrose/Water 1 250ml.bag @ 5 MCG/MIN 1.5 mls/hr IV .Q24H ONE Rx#: [id number] Oral 480 Output: Urine 1100 950 Other: Voiding Method Toilet # Voids 1 - Exam In general patient is alert and oriented x 3 in no distress HEENT head normocephalic and atraumatic Neck is supple no JVD no goiter no lymphadenopathy no carotid bruit Chest examination is clear to auscultation no crackles no wheezing Cardiac exam reveals regular heart sounds S1 and S2 no gallops no murmurs Abdomen is soft nontender no organomegaly with normal bowel sounds Extremity exam reveals no edema no cyanosis or clubbing Neurological examination reveals no gross focal deficits - Labs CBC & Chem 7: 11/04/22 07:36 11/04/22 07:36 Labs: Abnormal Lab Results - Last 24 Hours (Table) 11/03/22 11/04/22 Range/Units 11:37 07:36 Glucose 152 H (74-99) mg/dL Troponin I 0.619 H* (0.000-0.034) ng/mL Assessment and Plan Plan: Non-ST elevation acute myocardial infarction Underlying history of hypertension Underlying history of hyperlipidemia Underlying history of tobacco use Evidence of COPD Previous history of diverticulosis with history of diverticulitis At this time patient was started on IV heparin Today patient underwent cardiac catheterization with angioplasty and 2 stent placement in the proximal and mid right coronary artery She was also started on lisinopril, aspirin, Lipitor, nitroglycerin and metoprolol in the emergency room Cardiology consultation was requested Will follow closely
[2022-11-04] MEDS: ATORVASTATIN 80 MG TAB PO SCH (21:35)
--- NOTE | 2022-11-04 22:00 | P.PN ---
Subjective Progress Note Date: 11/04/22 Subjective Okay to go home today. REVIEW OF SYSTEMS: At the time of my exam: CONSTITUTIONAL: Denies fever or chills. HEENT: Denies blurred vision, vision changes, or eye pain. Denies hemoptysis CARDIOVASCULAR: Denies chest pain. Denies orthopnea. Denies PND. Denies palpitations RESPIRATORY: Denies shortness of breath. GASTROINTESTINAL: Denies abdominal pain. Denies nausea or vomiting. HEMATOLOGIC: Denies bleeding disorders. GENITOURINARY: Denies any blood in urine. SKIN: Denies pruitis. Denies rash. PHYSICAL EXAM: VITAL SIGNS: Reviewed. GENERAL: Well-developed in no acute distress. HEENT: Head is normocephalic. Pupils are equal, round. Sclerae anicteric. Mucous membranes of the mouth are moist. Neck supple. No JVD or thyromegaly LUNGS: Respirations even and unlabored. Lungs essentially clear to auscultation bilaterally. HEART: Regular rate and rhythm. S1 and S2 heard. ABDOMEN: Soft. Nondistended. Nontender. EXTREMITIES: Normal range of motion. No clubbing or cyanosis. Peripheral pulses intact. No lower extremity edema NEUROLOGIC: Awake and alert. Oriented x 3. ASSESSMENT: Non-STEMI Depression Nicotine dependence PLAN: okay top d/c o/p f/u with Dr Tejada continue aspirin and brilinta Right radial access site is healthy, good pulse. Objective - Vital Signs Vital signs: Vital Signs Temp 97.8 F 11/04/22 16:06 Pulse 63 11/04/22 16:06 Resp 16 11/04/22 16:06 BP 136/89 11/04/22 16:06 Pulse Ox 96 11/04/22 16:06 FiO2 Intake & Output 11/04/22 11/04/22 11/05/22 06:59 18:59 06:59 Intake Total 978 Output Total 950 Balance -950 978 Weight 65.3 kg Intake: IV 20 Invasive Line 1 20 Oral 958 Output: Urine 950 Other: Voiding Method Toilet # Voids 3 # Bowel Movements 1 - Labs CBC & Chem 7: 11/04/22 07:36 11/04/22 07:36 Labs: Abnormal Lab Results - Last 24 Hours (Table) 11/04/22 Range/Units 07:36 Glucose 152 H (74-99) mg/dL
[2022-11-05 06:07] VITALS: BP 128/74; PULSE 60; TEMP 98
[2022-11-05 07:47] LABS: Basophils % (A) 0 %; Eosinophils # (A) 0.3 k/uL (0-0.7); Eosinophils % (A) 3 %; HCT 35.5 % (34.0-46.0); HGB 12.3 gm/dL (11.4-16.0); Lymphocytes # (A) 2.8 k/uL (1.0-4.8); Lymphocytes % (A) 34 %; MCH 32.1 pg (25.0-35.0); MCHC 34.6 g/dL (31.0-37.0); MCV 92.6 fL (80.0-100.0); Mean Platelet Volume 7.6; Monocytes # (A) 0.6 k/uL (0-1.0); Monocytes % (A) 7 %; Neutrophils # (A) 4.3 k/uL (1.3-7.7); Neutrophils % (A) 53 %; Platelet Count 211 k/uL (150-450); RBC 3.83 m/uL (3.80-5.40); RDW 14.7 % (11.5-15.5)
[2022-11-05 08:21] LABS: ALT 38 U/L (4-34); AST 47 U/L (14-36); African American GFR (CKD) >90 (>60 ml/min/1.73 sqM); Albumin 3.6 g/dL (3.5-5.0); Alkaline Phosphatase 68 U/L (38-126); Anion Gap 6 mmol/L; Blood Urea Nitrogen 12 mg/dL (7-17); Calcium 8.7 mg/dL (8.4-10.2); Carbon Dioxide 26 mmol/L (22-30); Chloride 105 mmol/L (98-107); Glucose 89 mg/dL (74-99); Non-African American GFR(CKD) 89 (>60 ml/min/1.73 sqM); Potassium 3.9 mmol/L (3.5-5.1); Sodium 137 mmol/L (137-145); Total Bilirubin 0.7 mg/dL (0.2-1.3); Total Protein 6.1 g/dL (6.3-8.2)
[2022-11-05] MEDS: METOPROLOL TARTRATE 25 MG TAB PO SCH (09:57)
[2022-11-05] MEDS: TICAGRELOR 90 MG TAB PO SCH (09:57)
[2022-11-05] MEDS: LOSARTAN 50 MG TAB PO SCH (09:57)
[2022-11-05] MEDS: ASPIRIN 81 MG PO SCH (09:57)
[2022-11-05] MEDS: lisinopriL 10 MG TAB PO SCH (09:57)
--- NOTE | 2022-11-05 11:27 | P.DS ---
Providers Date of admission: 11/02/22 15:33 Expected date of discharge: 11/05/22 Attending physician: Caron Murillo Consults: 11/02/22 15:22 Consult Physician Urgent Consulting Provider: Lee Ann Cates Consult Reason/Comments: NSTEMI Do you want consulting provider notified?: Already Contacted Primary care physician: Joe Clark [facility] Course: Discharge summary Non-ST elevation acute myocardial infarction Underlying history of hypertension Underlying history of hyperlipidemia Underlying history of tobacco use Evidence of COPD Previous history of diverticulosis with history of diverticulitis Hospital course Anisa Nova, is a 67-year-old female who presented to [facility] emergency room with a chief complaint of chest pain and elevated troponin level. Patient states that over the last 4 weeks she has been having episodes of chest discomfort lasting 1-2 hours at the time, she describes episodes of pressure in the chest, however last night she had an episode of more severe pain radiating down to her left arm, and lasting several hours, she contacted her daughter who is a physician, she ordered a troponin level and that was elevated, patient was told to come to emergency room. She was evaluated in the emergency room vital examination on presentation revealed a temperature of 98.9 pulse 75 respiration 16 blood pressure 129/86 pulse ox 95% on room air Laboratory data revealed a white blood count of 10.8 hemoglobin 13.7 platelet count 200 sodium 138 potassium 3.9 chloride 106 CO2 23 BUN 17 creatinine 0.69 troponin level 0.794 BNP 2140 Testing in the emergency room revealed chest x-ray done in the emergency room revealed hyperinflation suggestive of COPD, no acute process. EKG revealed sinus rhythm with poor R-wave progression in anterior leads and T-wave inversion in V1 to V3 and lead 3 and aVF, no ST segment elevation. Patient was admitted to medical floor for further evaluation and treatment, she was started on IV heparin in the emergency room, cardiology consultation was requested. Past medical history is significant for history of hypertension, history of hyperlipidemia, patient used to be on medications however she stated that she stopped taking her blood pressure medication several years ago, previous episode of chest pain patient stated that she was admitted 12 years ago she underwent cardiac catheterization that was within normal limits at that time, no angioplasty or stent placement, patient also had a stress test in 2016 that was within normal limits , there is history of osteoarthritis, history of diverticulosis with episodes of diverticulitis with admission in 2014, surgical history significant for tonsillectomy with adenoidectomy, cholecystectomy appendectomy and hysterectomy. Social history significant for tobacco use patient stated that she still smoke about half a pack per day, she denies any significant alcohol use there is no history of drug use. On review of systems patient is alert and oriented 3 in no apparent distress there is no fever or chills no headache or dizziness no chest pain at this time no shortness of breath at rest no cough no nausea or vomiting no abdominal pain no diarrhea no blood in the stools no burning with urination no frequency or urgency and no hematuria. There is no weakness or numbness in any of the extremities there is no change in vision speech or gait. On 11/03/2022 patient was seen and examined on the telemetry floor, she is alert and oriented 3 in no apparent distress, she is complaining of headache at this time otherwise she denies any complaints, there is no fever or chills no headache or dizziness no chest pain no shortness of breath no cough no nausea or vomiting no abdominal pain no diarrhea and no urinary symptoms, patient underwent cardiac catheterization today she underwent angioplasty with stent placement of the proximal and mid right coronary artery. On 11/04/2022 patient was seen and examined on the telemetry floor she is alert and oriented 3 in no distress there is no new episodes of chest pain patient is feeling well and denying any symptoms there is no fever or chills no headache or dizziness no chest pain no shortness of breath no cough no nausea or vomiting no abdominal pain no diarrhea and no urinary symptoms On 11/05/2022 patient alert and oriented 3. Patient has been cleared for discharge from cardiology standpoint. At the same patient denies chest pain or shortness of breath. Patient denies nausea vomiting or diarrhea. Patient denies any urinary burning at peak frequency. Patient will be discharged on aspirin and brilinta. Hard copies of all new prescriptions given to patient per request. Patient advised on the importance of medical compliance. Patient advised follow up with PCP consulting providers for further management Patient Condition at Discharge: Stable Plan - Discharge Summary Discharge Rx Participant: No New Discharge Prescriptions: New Ticagrelor [Brilinta] 90 mg PO BID 30 Days #60 tab Atorvastatin [Lipitor] 80 mg PO HS 30 Days #30 tab Metoprolol Tartrate [Lopressor] 25 mg PO BID 30 Days #60 tab lisinopriL [Zestril] 10 mg PO DAILY 30 Days #30 tab Losartan [Cozaar] 50 mg PO DAILY 30 Days #30 tab Continue Magnesium Chewable (Unknown Dose) 1 tab PO DAILY Aspirin EC [Ecotrin Low Dose] 81 mg PO DAILY Zinc Gluconate [Zinc] 50 mg PO DAILY Cholecalciferol [Vitamin D3 (25 Mcg = 1000 Iu)] 25 mcg PO DAILY Omeprazole Magnesium [PriLOSEC OTC] 20 mg PO DAILY Ascorbic Acid [Vitamin C] 500 mg PO DAILY Discharge Medication List Ascorbic Acid [Vitamin C] 500 mg PO DAILY 11/02/22 [History] Aspirin EC [Ecotrin Low Dose] 81 mg PO DAILY 11/02/22 [History] Cholecalciferol [Vitamin D3 (25 Mcg = 1000 Iu)] 25 mcg PO DAILY 11/02/22 [History] Magnesium Chewable (Unknown Dose) 1 tab PO DAILY 11/02/22 [History] Omeprazole Magnesium [PriLOSEC OTC] 20 mg PO DAILY 11/02/22 [History] Zinc Gluconate [Zinc] 50 mg PO DAILY 11/02/22 [History] Atorvastatin [Lipitor] 80 mg PO HS 30 Days #30 tab 11/05/22 [Rx] Losartan [Cozaar] 50 mg PO DAILY 30 Days #30 tab 11/05/22 [Rx] Metoprolol Tartrate [Lopressor] 25 mg PO BID 30 Days #60 tab 11/05/22 [Rx] Ticagrelor [Brilinta] 90 mg PO BID 30 Days #60 tab 11/05/22 [Rx] lisinopriL [Zestril] 10 mg PO DAILY 30 Days #30 tab 11/05/22 [Rx] Follow up Appointment(s)/Referral(s): Luis Tejada MD [STAFF PHYSICIAN] - 1 Week (Please call offices SUNDAY when they are open to obtain a post hospital follow up appointment.) Joe Clark DO [Primary Care Provider] - 1-2 days (Please call offices SUNDAY when they are open to obtain a post hospital follow up appointment.) Patient Instructions/Handouts: Heart Attack (DC), After Radial Heart Catheterization (GEN) Activity/Diet/Wound Care/Special Instructions: CARDIAC CATH Support your puncture site by applying firm, steady pressure whenever you cough, laugh, sneeze or bear down to have a bowel movement (2-day restriction). Watch for any excessive bruising, active bleeding, a firm knot forming under your skin, extreme tenderness and signs of infection (redness, swelling, fever). Shower daily, do not soak puncture in a tub bath, jacuzzi, pool, combs etc. for 1 week. This is to prevent risk of infection. Drink plenty of fluids the day of and day after your procedure to flush contrast dye out of your kidneys. Take all medications as directed. Never stop any new medication without your physicians OK. No driving for 2 days after procedure. 10- pound weight lifting restriction for 1 week. Low sodium/low fat diet. Activity limited until follow up appointment with your timber girdler. In case of any problems, please call [facility] [place] @ [phone] Discharge Disposition: HOME SELF-CARE
== END 2022-11-05 14:10 | disposition home or self-care (01) | DRG 247 ==
LOC: EC 14:31 → 3SCARD 15:33
PROVIDERS: ADMIT Internal Medicine; ATTEND Internal Medicine
PROC: 4A023N7 Measurement of Cardiac Sampling and Pressure, Left Heart, Percutaneous Approach (ICD-10-PCS; principal; 2022-11-03 19:00)
PROC: B2111ZZ Fluoroscopy of Multiple Coronary Arteries using Low Osmolar Contrast (ICD-10-PCS; principal; 2022-11-03 19:00)
PROC: 027035Z Dilation of Coronary Artery, One Artery with Two Drug-eluting Intraluminal Devices, Percutaneous Approach (ICD-10-PCS; principal; 2022-11-03 19:00)
PROC: B240ZZ3 Ultrasonography of Single Coronary Artery, Intravascular (ICD-10-PCS; principal; 2022-11-03 19:00)
DX: I21.4 Non-ST elevation (NSTEMI) myocardial infarction (principal); J44.9 Chronic obstructive pulmonary disease, unspecified; E73.9 Lactose intolerance, unspecified; I25.10 Atherosclerotic heart disease of native coronary artery without angina pectoris; I10 Essential (primary) hypertension; E78.5 Hyperlipidemia, unspecified; F32.A Depression, unspecified; G89.29 Other chronic pain; M54.9 Dorsalgia, unspecified; K58.9 Irritable bowel syndrome, unspecified; M19.90 Unspecified osteoarthritis, unspecified site; R63.30 Feeding difficulties, unspecified; K21.9 Gastro-esophageal reflux disease without esophagitis; F17.210 Nicotine dependence, cigarettes, uncomplicated; Z71.6 Tobacco abuse counseling; Z79.82 Long term (current) use of aspirin; Z79.899 Other long term (current) drug therapy; Z88.6 Allergy status to analgesic agent; Z88.5 Allergy status to narcotic agent; Z88.0 Allergy status to penicillin; Z82.49 Family history of ischemic heart disease and other diseases of the circulatory system
CPT/HCPCS: 36415; 71046; 80053; 80061; 83735; 83880; 84484; 85025; 85049; 85610; 85730; 92978; 93005; 93306; 93458; 94760; 96365; 96366; 96368; 99291

== ENCOUNTER → 2022-11-02 | Outpatient (CLI) | payer MEDICARE ==
[2022-11-02 12:41] LABS: ALT 25 U/L (4-34); AST 36 U/L (14-36); African American GFR (CKD) >90 (>60 ml/min/1.73 sqM); Albumin/Globulin Ratio 1.4; Alkaline Phosphatase 100 U/L (38-126); Anion Gap 9 mmol/L; Blood Urea Nitrogen 19 mg/dL (7-17); Carbon Dioxide 24 mmol/L (22-30); Chloride 106 mmol/L (98-107); Globulin 2.9 g/dL; Glucose 110 mg/dL (74-99); Lipase 228 U/L (23-300); Non-African American GFR(CKD) >90 (>60 ml/min/1.73 sqM); Potassium 4.3 mmol/L (3.5-5.1); Sodium 139 mmol/L (137-145); Total Bilirubin 0.4 mg/dL (0.2-1.3); Total Protein 6.9 g/dL (6.3-8.2)
[2022-11-02 12:46] LABS: Basophils % (A) 0 %; Eosinophils # (A) 0.2 k/uL (0-0.7); Eosinophils % (A) 3 %; HCT 42.5 % (34.0-46.0); HGB 13.8 gm/dL (11.4-16.0); Lymphocytes # (A) 3.5 k/uL (1.0-4.8); Lymphocytes % (A) 37 %; MCH 30.8 pg (25.0-35.0); MCHC 32.4 g/dL (31.0-37.0); MCV 94.9 fL (80.0-100.0); Mean Platelet Volume 7.8; Monocytes # (A) 0.7 k/uL (0-1.0); Monocytes % (A) 7 %; Neutrophils # (A) 4.8 k/uL (1.3-7.7); Neutrophils % (A) 50 %; Platelet Count 239 k/uL (150-450); RBC 4.48 m/uL (3.80-5.40); WBC 9.7 k/uL (3.8-10.6)
== END | disposition home or self-care (01) ==
LOC: LABWHC1 10:56
PROVIDERS: ATTEND Family Medicine
DX: R07.9 Chest pain, unspecified (principal)
CPT/HCPCS: 36415; 80053; 83690; 84484; 85025; 93005

== ENCOUNTER 2023-11-19 06:42 | Day surgery (SDC) | payer MEDICARE ==
[~2023-11-19 06:42] MED LIST: ALPRAZolam 0.5 MG TAB ONE
[2023-11-19] MEDS ORDERED: MIDAZOLAM 2 MG/2 ML VIAL ONE (07:30)
[2023-11-19] MEDS ORDERED: LIDOCAINE 1% INJ 10MG/ML (20 ML MDV) ONE (07:30)
[2023-11-19] MEDS ORDERED: SODIUM CHLORIDE 0.9% 1,000 ML BAG ONE ×2 (07:30→07:56)
[2023-11-19] MEDS ORDERED: VERAPAMIL 2.5 MG/ML 2 ML AMP ONE (07:30)
[2023-11-19] MEDS ORDERED: HEPARIN SODIUM 1,000 UN/ML (10ML VL) ONE (07:30)
[2023-11-19] MEDS ORDERED: fentaNYL (PF) 50 MCG/ML 2 ML AMP ONE (07:43)
[2023-11-19] MEDS ORDERED: HYDROmorphone 0.5 MG/0.5 ML SYRINGE ONE (07:45)
[2023-11-19] MEDS ORDERED: SODIUM CHLORIDE 0.9% 250 ML BAG ONE (07:56)
[2023-11-19] MEDS ORDERED: HEPARIN SODIUM,PORCINE 10,000 UNIT/ML 1 ML VIAL ONE (07:56)
[2023-11-19] MEDS ORDERED: HEPARIN SODIUM,PORCINE 5,000 UNIT/ML 1 ML VIAL ONE (07:56)
[2023-11-19] MEDS: IOPAMIDOL-370 100ML BTL INJ ONE (08:04)
[2023-11-19] MEDS ORDERED: ACETAMINOPHEN TAB 500 MG TAB ONE (12:41)
--- NOTE | 2024-01-07 15:35 | CC ---
CARDIAC CATHETERIZATION REPORT PROCEDURE: Left heart catheterization and coronary angiography. PERFORMED BY: Dr. Mame Tejada. ANESTHESIA: Moderate conscious sedation time was 23 minutes. Patient was administered Versed and fentanyl and Dilaudid. Oxygen saturation, hemodynamics, and EKG were monitored closely. CLINICAL INFORMATION: Ms. Susie Nova is a 68-year-old lady with a [id number] ID and stenting of RCA in October 2022. Because of symptoms of angina and recent hospitalization, abnormal stress test, which revealed mid inferior wall partially reversible defect with preserved LV function, I recommended cardiac catheterization and brought in for the procedure electively. PROCEDURE NOTE: Under local anesthesia and strict aseptic precautions, a 6-Thai introducer was placed to the right radial artery using ultrasound guidance with the help of Dr. Thomas. I used a JL3.5 and JR4 catheters to perform coronary angiography and the same right catheter was used to check LV pressures. LV-gram was not performed. The sheath was taken out and TR band applied as per protocol and saturation to the fingers of the right hand was 94%. The patient tolerated the procedure well without complications. CARDIAC CATHETERIZATION FINDINGS: The left ventricular end-diastolic pressure was 13 mmHg without any gradient across aortic valve. CORONARY ANGIOGRAPHY FINDINGS: Left main coronary artery: Short patent vessel. No significant disease. Bifurcates into LAD and circumflex. Left anterior descending coronary artery: Good caliber vessel extends along the anterior wall, gives off septal and diagonal branches, runs all the way to the apex, has no significant disease, only minor irregularities and natural tapering towards the apex. Left posterior circumflex coronary artery: Nondominant vessel, gives off a high obtuse marginal, runs laterally which divides into 2 branches and then there is a small groove branch. No significant disease in the nondominant circumflex. Right coronary artery: This was stented in October 2022, now widely patent without any evidence of restenoses, brisk flow distally, bifurcates into small PLV and large PDA. Has minor irregularities. There is no evidence of any restenosis. FINAL IMPRESSION: This patient has normal filling pressures. No gradient. Right-dominant system with a widely patent RCA that was stented over a year ago. No significant disease in the LAD, left main or circumflex. RECOMMENDATIONS: Continued medical therapy with risk factor modification is advised. Patient will be on aspirin and Plavix and will be discharged later on today. I will see her in the office on the at 8:30 a.m. Results and discharge instructions were discussed with the patient and her daughter, Dr. Rand Meyer. MMJANICE / LELANDN: [id number] /
== END 2023-11-19 14:10 | disposition home or self-care (01) ==
LOC: CATHCVL 06:42
PROVIDERS: ATTEND Internal Medicine Interventional Cardiology
DX: I25.10 Atherosclerotic heart disease of native coronary artery without angina pectoris (principal); I10 Essential (primary) hypertension; E78.2 Mixed hyperlipidemia; F17.210 Nicotine dependence, cigarettes, uncomplicated; I25.2 Old myocardial infarction; Z82.49 Family history of ischemic heart disease and other diseases of the circulatory system; Z79.82 Long term (current) use of aspirin; Z79.899 Other long term (current) drug therapy; Z88.0 Allergy status to penicillin; Z88.5 Allergy status to narcotic agent; Z88.6 Allergy status to analgesic agent
CPT/HCPCS: 93458

== ENCOUNTER → 2024-06-16 | Outpatient (CLI) | payer MEDICARE ==
--- NOTE | 2024-06-16 12:21 | CTL ---
EXAMINATION TYPE: CT Low Dose Lung DATE OF EXAM: 06/16/2024 11:40 AM COMPARISON: 02/09/2015. CLINICAL INDICATION: Female, 69 years old with history of Z12.2, Z87.891; former smoker 1/2 PPD x50 y ears, history of tobacco use. TECHNIQUE: Multiple axial non-contrast scans were obtained from approximately the lung apices through the upper abdomen. Coronal and sagittal reformatted images were obtained. Low dose technique was uti lized. MIP were created on a separate workstation and submitted for review. CT DLP: 112.6 mGycm, Automated exposure control for dose reduction was used. CT Contrast: Contrast used: None Oral contrast used: None FINDINGS: Lack of intravenous contrast and low dose technique limits the evaluation of the vascular and soft ti ssue structures. LUNGS: No evidence of pulmonary fibrosis. No evidence of focal consolidation, pneumothorax or pleural effusion. Centrilobular emphysema changes. Nodules: RUL: 5 mm series 5 image 25. RML: None. RLL: 3 mm series 4 image 46. CLINT: None. LLL: Streaky atelectasis in the lung base.. AIRWAY: Patent and unremarkable. HEART: Size within normal limits. Mild coronary artery calcifications present. MEDIASTINUM: No gross evidence of adenopathy. VASCULATURE: No aortic aneurysm. MUSCULOSKELETAL: No acute osseous abnormalities SOFT TISSUES/LYMPH NODES: Unremarkable. LOWER NECK: No significant findings. UPPER ABDOMEN: No significant findings. IMPRESSION: 1. 5 mm right upper lung pulmonary nodule. 2. Mild emphysema. CT LUNG RAD AND CT CHEST RECOMMENDATION: Lung-Rad 2 Benign Appearance or Behavior: Continue annual sc reening with LDCT in 12 months. S Modifier (other clinically significant findings): None Recommend smoking cessation (if current smoker), or continuation of smoking cessation (if prior smoke r). Annual screening for lung cancer with low-dose computed tomography is recommended in adults ages 55 to 77 years who have a 30 pack-year smoking history and currently smoke or have quit within the pa st 15 years. Screening should be discontinued once a person has not smoked for 15 years or develops a health problem that substantially limits life expectancy or the ability or willingness to have curat laura lung surgery. Lung rads 2021 [email or web address] [facility], , 06/16/2024 12:19 PM
== END | disposition home or self-care (01) ==
LOC: RADCTMAIN 10:18
PROVIDERS: ATTEND Family Medicine
DX: Z12.2 Encounter for screening for malignant neoplasm of respiratory organs (principal); J43.2 Centrilobular emphysema; Z87.891 Personal history of nicotine dependence; R91.1 Solitary pulmonary nodule
CPT/HCPCS: 71271

== ENCOUNTER → 2024-10-09 | Outpatient (CLI) | payer MEDICARE ==
--- NOTE | 2024-10-09 12:18 | XR ---
EXAMINATION TYPE: XR shoulder complete RT DATE OF EXAM: 10/09/2024 12:00 PM COMPARISON: None. CLINICAL INDICATION: Female, 69 years old with history of M25.511 pain R shoulder, pain TECHNIQUE: XR shoulder complete RT views were obtained FINDINGS: There is no acute fracture/dislocation evident. The acromioclavicular and glenohumeral joint spaces appear within normal limits. The visualized ribs are intact and unremarkable. IMPRESSION: There is no acute fracture or dislocation. [facility], , 10/09/2024 12:16 PM
== END | disposition home or self-care (01) ==
LOC: RADXRMAIN 11:43
PROVIDERS: ATTEND Family Medicine
DX: M25.511 Pain in right shoulder (principal)